=== PATIENT | male | born 1990 | race Caucasian/White ===

== ENCOUNTER 2021-07-15 18:28 | Inpatient (IN) ==
[2021-07-15 19:23] LABS: Basophils # 0.1 K/mcL (0.0-0.2); Basophils % 0.5 %; Eosinophils % 0.1 %; Hematocrit 43.1 % (37.5-50.1); Hemoglobin 14.5 g/dL (12.9-16.9); Immature Granulocytes % 0.6 % (0-4); Lymphocytes # 2.2 K/mcL (0.6-4.6); Lymphocytes % 11.7 %; Mean Corpuscular HGB Conc 33.6 g/dL (31.6-35.5); Mean Corpuscular Hemoglobin 28.5 pg (28.0-33.3); Mean Corpuscular Volume 84.7 fL (83.0-100.0); Mean Platelet Volume 9.5 fL (9.4-12.4); Monocytes # 1.6 K/mcL (0.0-1.3); Monocytes % 8.5 %; Neutrophils # 14.7 K/mcL (1.6-8.9); Platelet Count 433 K/mcL (140-400); Red Blood Count 5.09 M/mcL (4.19-5.50); Red Cell Distribution Width 14.5 % (11.5-14.5); Segmented Neutrophils % 78.6 %; White Blood Count 18.7 K/mcL (4.3-11.1)
[2021-07-15 19:25] LABS: VBG HCO3 26 mEq/L (21-27); VBG PCO2 39 mmHg (41-51); VBG PH 7.43 pH Units (7.32-7.42); VBG PO2 42 mmHg (25-50)
[2021-07-15 19:44] LABS: Albumin/Globulin Ratio 1.5 (1.1-2.2); Bilirubin,Total 0.6 mg/dL (0.3-1.0); Calcium 10.5 mg/dL (8.6-10.3); Globulin 3.3 g/dL (2.4-3.5); Magnesium 2.3 mg/dL (1.6-2.6); Phosphorous 6.5 mg/dL (2.7-4.5); Total Protein 8.3 g/dL (6.4-8.9)
[2021-07-15 19:45] LABS: Troponin I 0.03 ng/mL (< 0.04)
[2021-07-15] MEDS ORDERED: 0.9 % Sodium Chloride 1,000 ML IV ONE ×2 (19:45→19:46)
[2021-07-15] MEDS ORDERED: Insulin Human Regular 5 UNIT in 0.9 % Sodium Chloride 10 ML SUBQ ONE (20:16)
[2021-07-15] MEDS ORDERED: Insulin Regular, Human 100 UNIT/ML SUBQ ONE (20:30)
[2021-07-15] MEDS ORDERED: Ondansetron 4 MG/2 ML VIAL IVP ONE (21:20)
[2021-07-15] MEDS ORDERED: Ondansetron 4 MG/2 ML VIAL IVP PRN (21:23)
[2021-07-15] MEDS ORDERED: Naloxone 0.4 MG/ML INJ IVP PRN (21:23)
[2021-07-15] MEDS ORDERED: Acetaminophen 325 MG TABLET PO PRN (21:23)
[2021-07-15 21:46] LABS: Influenza A PCR Negative (Negative); Influenza B PCR Negative (Negative); Resp. Syncytial Virus PCR Negative (Negative)
[2021-07-15 21:48] LABS: SARS-CoV-2 by PCR (In House) Negative (Negative)
[2021-07-16] MEDS ORDERED: Pantoprazole 40 MG VIAL IVP ONE (01:00)
[2021-07-16] MEDS: Pantoprazole 40 MG in 0.9 % Sodium Chloride Mini Bag 100 ML IVC SCH ×2 (01:25→07:34)
[2021-07-16] MEDS: *HR* LORazepam 2 MG/ML VIAL IVP PRN ×2 (01:25→12:15)
[2021-07-16] MEDS: niCARdipine 20 MG/200 ML MLS IVC SCH ×3 (04:01→10:55)
[2021-07-16 04:08] LABS: Basophils # 0.1 K/mcL (0.0-0.2); Basophils % 0.5 %; Hematocrit 39.1 % (37.5-50.1); Hemoglobin 12.6 g/dL (12.9-16.9); Immature Granulocytes % 0.7 % (0-4); Lymphocytes # 0.9 K/mcL (0.6-4.6); Lymphocytes % 4.7 %; Mean Corpuscular HGB Conc 32.2 g/dL (31.6-35.5); Mean Corpuscular Volume 86.9 fL (83.0-100.0); Mean Platelet Volume 9.7 fL (9.4-12.4); Monocytes # 1.2 K/mcL (0.0-1.3); Monocytes % 6.1 %; Neutrophils # 17.1 K/mcL (1.6-8.9); Platelet Count 408 K/mcL (140-400); Red Cell Distribution Width 15.1 % (11.5-14.5); White Blood Count 19.4 K/mcL (4.3-11.1)
[2021-07-16 04:10] VITALS: TEMP 98.9
[2021-07-16 04:22] LABS: Prothrombin Time 10.8 Seconds (9.4-12.1)
[2021-07-16 04:43] LABS: Magnesium 2.1 mg/dL (1.6-2.6); Phosphorous 7.1 mg/dL (2.7-4.5); Thyroid Stimulating Hormone 0.705 mcIU/mL (0.340-5.600)
[2021-07-16 05:02] LABS: Hepatitis B Surface Antigen Nonreactive (Nonreactive)
[2021-07-16] MEDS ORDERED: Insulin LISPRO 300 UNITS/3 ML VIAL SUBQ PRN (05:18)
[2021-07-16] MEDS ORDERED: D5% in 0.45% NACL w KCl 20 MEQ/1,000 ML MLS IVC PRN (05:18)
[2021-07-16] MEDS ORDERED: D5% in 0.45% NACL 1,000 ML IVC PRN (05:18)
[2021-07-16] MEDS ORDERED: *HR* Dextrose 50 % in Water (Syg) 50 ML SYRINGE IVP PRN (05:18)
[2021-07-16] MEDS ORDERED: 0.9 % Sodium Chloride 1,000 ML IVC PRN (05:25)
[2021-07-16 05:30] LABS: Hepatitis C Virus Antibody Nonreactive (Nonreactive)
[2021-07-16] MEDS ORDERED: 0.9 % Sodium Chloride 1,000 ML IVC SCH (05:30)
[2021-07-16] MEDS ORDERED: 0.9 % Sodium Chloride w KCl 20 MEQ/1,000 ML MLS IVC SCH (05:30)
[2021-07-16 05:31] LABS: Hepatitis B Core IgM Nonreactive (Nonreactive)
[2021-07-16 05:32] LABS: Hepatitis A Antibody IgM Nonreactive (Nonreactive)
[2021-07-16] MEDS: 0.9 % Sodium Chloride w KCl 20 MEQ/1,000 ML MLS IVC PRN ×2 (06:45→09:22)
[2021-07-16 07:01] LABS: VBG HCO3 10 mEq/L (21-27); VBG PCO2 19 mmHg (41-51); VBG PH 7.34 pH Units (7.32-7.42); VBG PO2 185 mmHg (25-50)
[2021-07-16 07:38] LABS: Calcium 8.7 mg/dL (8.6-10.3); Potassium 4.4 mEq/L (3.5-5.1)
[2021-07-16] MEDS ORDERED: Cefepime HCl 2,000 MG in 0.9 % Sodium Chloride Mini Bag 100 ML IVPB SCH (10:00)
[2021-07-16 10:58] LABS: Calcium 8.6 mg/dL (8.6-10.3); Potassium 3.6 mEq/L (3.5-5.1)
[2021-07-16 15:59] VITALS: BP 163/84; PULSE 112; O2SAT 100
[2021-07-16 16:44] LABS: VBG HCO3 22 mEq/L (21-27); VBG PCO2 27 mmHg (41-51); VBG PH 7.52 pH Units (7.32-7.42); VBG PO2 120 mmHg (25-50)
[2021-07-16 17:04] LABS: Calcium 8.5 mg/dL (8.6-10.3); Potassium 3.7 mEq/L (3.5-5.1)
[2021-07-17] MEDS ORDERED: Pantoprazole 40 MG VIAL IVP SCH (09:00)
== END 2021-07-16 17:52 | disposition left against medical advice (07) | DRG 871 ==
LOC: EMEROOARM 18:28 → 2NENU 22:56 → SUATTDRO 22:56 → 2NENU 23:47 → 2NNU 07-16 16:13
PROVIDERS: ADMIT Internal Medicine; ATTEND Internal Medicine